=== PATIENT | female | born 1985 | race Caucasian/White ===

== ENCOUNTER 2017-01-04 21:19 | Emergency (ER) | payer OTHER | END 2017-01-05 01:15 | disposition home or self-care (01) | LOC: ER 21:19 | DX: R10.2 Pelvic and perineal pain (principal); R10.33 Periumbilical pain; R11.0 Nausea; F41.9 Anxiety disorder, unspecified; F17.210 Nicotine dependence, cigarettes, uncomplicated; Z98.51 Tubal ligation status; Z79.899 Other long term (current) drug therapy | CPT/HCPCS: 36415; 96374; 96375; J1885; Q9963 ==